=== PATIENT | male | born 1985 | race Caucasian/White ===

== ENCOUNTER 2018-03-06 06:21 | Emergency (ER) | payer SELFPAY ==
[2018-03-06 06:25] VITALS: BP 117/79; PULSE 75; RESP 16; TEMP 36.7; O2SAT 98
--- NOTE | 2018-03-06 06:44 | W.ED.GENAD ---
Discharge Plan Discharge Details Chief Complaint: RashLesion Clinical Impression: Impetigo, Poison yamilex Primary Care Provider: NONE,NONE ED Provider: Deonte Honeycutt Disposition Patient Disposition: HOME Condition: Good Home Meds and New Rx's Prescriptions: New clindamycin HCl 150 mg capsule 450 mg PO TID 7 Days Qty: 63 RF: 0 prednisone 50 mg tablet 50 mg PO DAILY Qty: 21 RF: 0 mupirocin calcium 2 % cream 1 applic TP TID Qty: 15 RF: 0 Discharge Instructions Instructions: Impetigo (ED), Poison Yamilex (ED) Additional Instructions: Please take the medication as directed. If you noticed that your symptoms improve after 1 week please stop taking prednisone steroid. If you notice any worsening of your symptoms, or any new symptoms such as vomiting, diarrhea, fever, chills, shortness of breath, chest pain, numbness, weakness, or fainting , please return immediately to the emergency department for reevaluation. Please follow up with your primary care provider as soon as possible for reassessment and reevaluation. As always, it was a pleasure participating in your medical care today. Medical Decision Making MDM Narrative Medical decision making narrative: This is a 32-year-old male with no significant past medical history who presents with a rash on his left medial ankle. Patient was exposed to poison yamilex about 2 weeks ago, has had a mild rash in that area ever since over the last couple of days he has noticed some redness and worsening of the rash and worsening of discharge patient weeping. Physical exam demonstrates a relatively benign appearing ankle however there does appear to be some mild redness over the medial aspect of the medial malleoli, there is noticeable honeydew colored/crusted weeping from this area. It is mildly pruritic. No evidence of circumferential erythema, and no signs or symptoms suggestive of systemic infection. The redness is very mild. Clinical impression does appear to demonstrate which I feel to be unresolved poison yamilex dermatitis, now with a mild superinfection seen objectively concerning for impetigo. We will give mupirocin cream, clindamycin for potential cellulitis, as well as steroids for unresolved poison yamilex dermatitis. We discussed red flags for which to return as well as the importance of close follow-up with PCP. We also recommended that he take yogurt with live cultures while taking the clindamycin. I have extensively reviewed the treatment plan and discharge instructions with the patient. I have addressed all patient concerns at this time. The patient was made aware of what symptoms to monitor for that would warrant a return to the emergency department. Discussed the plan with the patient, they demonstrate verbal understanding and agreement with our assessment and plan at this time. This is a 32-year-old male with no significant past medical history except for previous left ankle surgery over 10 years ago who presents today for rash on the medial aspect of his left ankle. The patient states his ankle was exposed to poison yamilex 2 weeks ago, which point he was moderately itchy, and had some weeping, however recently over the last 2-3 days it is gotten notably red, had severe increase in weeping, is worsening pain. Ankle pain is made worse with mild movement, however he is able to walk without a limp. The weeping is made worse with scratching. He denies any fever, chills, or systemic symptoms. He denies any numbness tingling or weakness. Patient has been leaving the area exposed in an attempt to try it, and has been using some topical natural sauves with no improvement. Patient does not have any other complaints at this time. He denies any IV or illicit drug use. He denies any pertinent family history. 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 Related Data Previous Rx's Medication Instructions Recorded clindamycin HCl 450 mg PO TID 7 Days #63 cap 03/06/18 mupirocin calcium 1 applic TP TID #15 gm 03/06/18 prednisone 50 mg PO DAILY #21 tab 03/06/18 Allergies Allergy/AdvReac Type Severity Reaction Status Date / Time No Known Allergies Allergy Unverified 03/06/18 06:25 General Stated Complaint: RashLesion DUGLAS: 3 Review of Systems Review of Systems 10 point review of systems was performed, pertinent positives and negatives are noted in the history of present illness. PFSH Social History Smoking/Tobacco Use Status: Never Exam Narrative Exam Narrative: 1.Const: Well-nourished, Well-developed, appearing stated age 2.Eyes: PERRL, no conjunctival injection, and symmetrical lids. 3.ENT: Atraumatic external nose and ears. Moist MM. Neck: Symmetric, trachea midline, No thyromegaly. 4.CVS: +S1/S2, No murmurs or gallops. Peripheral pulses 2+ and equal in all extremities. Brisk capillary refill in all extremities. 5.RESP: Unlabored respiratory effort. Clear to auscultation bilaterally. No wheezes rales or rhonchi 6.GI: Soft, Nontender/Nondistended, No hepatosplenomegaly. No guarding or rebound. 7.MSK: Normocephalic/Atraumatic, Extremities w/o deformity or ttp No cyanosis or clubbing, Normal movement of all extremities. Dorsalis pedis +2 bilaterally, capillary refill brisk. Normal sensation in the lower extremities 8.Skin: Warm, Dry. Mild redness on the medial aspect of the left ankle. Notable yellow crusting and honeydew colored weeping. No significant warmth. No significant pain with the ankle movement. No significant pain with palpation. No evidence of calf tenderness, redness over the foot or calf, or circumferential redness. 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 Sensation grossly intact, no focal neurologic deficits. 10.Psych: (AAO) x3. Appropriate mood and affect Course Vital Signs Temperature 36.7 C 03/06/18 06:25 Pulse 75 03/06/18 06:25 Respiratory Rate 16 03/06/18 06:25 Blood Pressure 117/79 03/06/18 06:25 Pulse Oximetry 98 03/06/18 06:25 Temperature 36.7 C 03/06/18 06:25 Pulse 75 03/06/18 06:25 Respiratory Rate 16 03/06/18 06:25 Blood Pressure 117/79 03/06/18 06:25 Pulse Oximetry 98 03/06/18 06:25
== END 2018-03-06 06:46 | disposition home or self-care (01) ==
LOC: ER 06:53
PROVIDERS: Emergency Provider Student in an Organized Health Care Education/Training Program
DX: L23.7 Allergic contact dermatitis due to plants, except food (principal); L01.00 Impetigo, unspecified
CPT/HCPCS: 99283

== ENCOUNTER 2019-01-30 15:40 | Emergency (ER) | payer MEDICAID, SELFPAY ==
[2019-01-30 15:45] VITALS: BP 126/84; PULSE 64; RESP 16; TEMP 36.8; O2SAT 99
[2019-01-30] MEDS: Lidocaine/Epinephri/Tetracaine Topical Gel 3 ML (16:11)
--- NOTE | 2019-01-30 16:25 | W.ED.GENAD ---
Discharge Plan Disposition Patient Disposition: HOME Discharge Details Chief Complaint: Laceration Clinical Impression: Laceration of left index finger Primary Care Provider: Cesar Ruiz ED Provider: Jason Machado Home Meds and New Rx's Prescriptions: No Action No Known Home Meds RF: 0 Discharge Instructions Instructions: Finger Laceration (ED) Additional Instructions: Sutures should be removed in 8 to 12 days. Please return for suture removal or follow-up with your primary care physician. Keep wound clean and dry. Change dressing daily and apply topical antibiotic Neosporin at time of dressing change. Monitor for signs of infection including increased warmth, swelling, discharge, redness, or pain. Return to the ER for any worsening or new concerning symptoms. Referrals: Cesar Ruiz DO [Primary Care Provider] - Medical Decision Making 33-year-old male here with laceration to left second digit dorsally. Neurologically intact distally. Deep structures intact with full range of motion and no weakness on extension. Wound irrigated extensively with copious sterile saline. Wound repaired, primary closure performed with number two 5-0 Prolene. No complications. Sterile dressing applied and finger splint provided. Usual and customary discharge instructions were provided and reviewed with the patient. HPI General Mode of arrival: ambulatory. Date/Time Provider Initiated Documentation: 01/30/19 15:47. Limitations to Documentation: no limitations. Information obtained by: patient. HPI Narrative: 33-year-old male presents with chief complaint of finger laceration. Patient notes he accidentally cut his left index finger on a saw just prior to arrival. Wound was initially bleeding heavily. He irrigated it extensively with cold water. Bleeding stopped. No modifiers. No associated numbness or tingling. No weakness. Related Data Home Medications Medication Instructions Recorded Confirmed Unknown [No Known Home Meds] 01/30/19 01/30/19 Allergies Allergy/AdvReac Type Severity Reaction Status Date / Time No Known Allergies Allergy Unverified 01/30/19 15:53 General Stated Complaint: Laceration DUGLAS: 4 Review of Systems Integumentary/Breasts Reports as per HPI Neurologic Reports as per HPI [facility] Social History Smoking/Tobacco Use Status: Never Alcohol Intake: current Alcohol Intake frequency: holidays/special occasions only Drug use: Never Do you feel safe at home: Yes Do you feel safe in your relationship?: Yes Exam Skin Trauma: laceration (1cm rt index dorsal no bleeding) Extrem Left upper extremity: hand Details: normal capillary refill, neuromotor exam normal, neurosensory exam normal, tendon exam normal, normal ROM of fingers and laceration (as noted above) Course Vital Signs Temperature 36.8 C 01/30/19 15:45 Pulse 64 01/30/19 15:45 Respiratory Rate 16 01/30/19 15:45 Blood Pressure 126/84 01/30/19 15:45 Pulse Oximetry 99 01/30/19 15:45 Temperature 36.8 C 01/30/19 15:45 Temperature Source Skin 01/30/19 15:45 Pulse 64 01/30/19 15:45 Respiratory Rate 16 01/30/19 15:45 Respiratory Effort Non-Labored 01/30/19 15:52 Blood Pressure 126/84 01/30/19 15:45 Blood Pressure Position Sitting 01/30/19 15:45 Pulse Oximetry 99 01/30/19 15:45 Oxygen Delivery Method Room Air 01/30/19 15:45 Oxygen Flow Rate 0 01/30/19 15:45 Pain Level 2 01/30/19 15:45 Procedures Laceration Laceration 1: Site: hand Side (If applicable): left Description: flap and clean Depth: simple, single layer Local Anesthetic: other anesthetic (LET) Pre-repair: wound explored, irrigated extensively and deep structures intact Skin layer closed with: other (prolene) Size (cm): 5-0 Number of sutures: 2 Technique: simple, interrupted
[2019-01-30 17:11] VITALS: BP 126/84; PULSE 64; RESP 16; TEMP 36.8; O2SAT 99
== END 2019-01-30 17:11 | disposition home or self-care (01) ==
PROVIDERS: Emergency Provider Student in an Organized Health Care Education/Training Program; PCP Family Medicine
DX: S61.211A Laceration without foreign body of left index finger without damage to nail, initial encounter (principal); W27.0XXA Contact with workbench tool, initial encounter
CPT/HCPCS: 12001; 90471

== ENCOUNTER 2019-11-19 23:16 | Emergency (ER) | payer MEDICAID, SELFPAY ==
--- NOTE | 2019-11-19 23:19 | ED.GENADUL_ITS ---
Discharge Plan Disposition Patient Disposition: HOME Condition: Good Discharge Details Chief Complaint: RashLesion Clinical Impression: Shingles Primary Care Provider: Unknown,Unknown ED Provider: Guilherme Muro and New Rx's Prescriptions: New valacyclovir 1 gram tablet 1,000 mg PO TID Qty: 20 RF: 0 ibuprofen 600 mg tablet 600 mg PO Q8H PRN (Reason: pain) Qty: 15 RF: 0 Discharge Instructions Instructions: Shingles (ED) Additional Instructions: Take valacyclovir for 7 days for treatment of shingles. Use ibuprofen and acetaminophen as needed for pain and discomfort. Keep rash covered until completely dried up. Follow-up with primary care in 1 to 2 weeks if not better. Return to ED for high fever, mental status changes, difficulty breathing, continued worsening of rash, other concerns. Referrals: Primary Care Provider [Outside] Medical Decision Making Patient has herpes-zoster. He still has ongoing new vesicles occurring. Therefore, despite symptoms starting over 72 hours ago due to the fact that he continues to have new vesicles we will start treatment with valacyclovir. Will use ibuprofen and Tylenol for pain as he does not seem to be entirely uncomfortable. Discussed keeping rash covered and avoiding contact with people who have not had chickenpox, and vaccinated against chickenpox or are . Follow-up with primary care in 1 to 2 weeks if not doing better. Return to ED for fever, difficulty breathing, continued worsening rash, other problems. HPI General Mode of arrival: ambulatory . Date/Time Provider Initiated Documentation: 11/19/19 23:17 . Limitations to Documentation: no limitations . Information obtained by: patient and RN notes reviewed . HPI Narrative: Patient presents to ED with a rash involving the right side of his neck shoulder and arm with pain in the shoulder and neck. Rash started 5 days ago now on the back of his neck. He continues to progress now down the right arm along the bicep. It involves the chest shoulder trapezial area. Some areas have dried over. Some continue to erupt down his arm. He has pain in the shoulder and neck with movement. He denies feeling ill otherwise. He did have chickenpox as a child. Related Data Home Medications Medication Instructions Recorded Confirmed ibuprofen 600 mg PO Q8H PRN #15 tab 11/19/19 valacyclovir 1,000 mg PO TID #20 tab 11/19/19 Previous Rx's Medication Instructions Recorded ibuprofen 600 mg PO Q8H PRN #15 tab 11/19/19 valacyclovir 1,000 mg PO TID #20 tab 11/19/19 Allergies Allergy/AdvReac Type Severity Reaction Status Date / Time No Known Allergies Allergy Unverified 01/30/19 15:53 General DUGLAS: 4 Review of Systems Narrative: As documented in HPI otherwise negative as below. Const: no fever, chills, weakness Resp: no cough, SOB, pleuritic pain CV: no CP, diaphoresis, edema, syncope GI: no abdominal pain, nausea, vomiting, diarrhea Neuro: no headache, numbness, focal weakness, confusion PFSH Medical History No active medical problems (Acute) Surgical History History of surgical procedure (Acute) orthopedic procedures Social History Smoking/Tobacco Use Status: Never Alcohol Intake: current Alcohol Intake frequency: holidays/special occasions only Drug use: Never Do you feel safe at home: Yes Do you feel safe in your relationship?: Yes Exam Narrative Exam Narrative: Vitals: Afebrile with normal vitals and normal room air pulse ox. Const: WDWN male in NAD. HEENT: NC/AT. Normal facial exam. Eyes: Normal conjunctiva and sclera. Neck: Supple. Trachea midline. Lungs: Normal respiratory effort. Neuro: A+O x 3. Normal speech, mentation, gait. Cranial nerves II - XII grossly intact. No gross motor or sensory deficit. Ext: No C/C/E. Normal range of motion of right upper extremity. Skin: Warm and dry with vesicular rash involving only the right side, not crossing midline. Involves neck, trapezial back, shoulder, chest and proximal upper extremity rash.
[2019-11-19 23:21] VITALS: BP 139/78; PULSE 65; RESP 16; TEMP 36.6; O2SAT 100
[2019-11-19] MEDS: Ibuprofen 600 MG TAB PO (23:40)
[2019-11-19] MEDS: valACYclovir 1,000 MG TAB 1000 MG PO (23:41)
== END 2019-11-19 23:50 | disposition home or self-care (01) ==
LOC: ER 23:54
PROVIDERS: Emergency Provider Emergency Medicine
DX: B02.9 Zoster without complications (principal)
CPT/HCPCS: 99283

== ENCOUNTER 2019-11-20 10:30 | Emergency (ER) | payer MEDICAID, SELFPAY ==
[2019-11-20 10:37] VITALS: BP 136/89; PULSE 70; RESP 14; TEMP 36.8; O2SAT 100
--- NOTE | 2019-11-20 11:04 | W.ED.GENAD ---
Discharge Plan Disposition Patient Disposition: HOME Condition: Stable Discharge Details Chief Complaint: RashLesion Clinical Impression: Shingles Primary Care Provider: None,None ED Provider: Deepthi Florez Home Meds and New Rx's Prescriptions: New oxycodone 5 mg capsule 2.5 mg PO Q6H PRNQty: 8 RF: 0 ondansetron HCl [Zofran] 4 mg tablet 4 mg PO Q8H PRNQty: 16 RF: 0 Continued valacyclovir 1 gram tablet 1,000 mg PO TID Qty: 20 RF: 0 ibuprofen 600 mg tablet 600 mg PO Q8H PRN (Reason: pain) Qty: 15 RF: 0 Discharge Instructions Instructions: Shingles (ED) Additional Instructions: Use medication as prescribed. Use pain medication as prescribed. Do not drive any vehicles, mix with alcohol or any other sedating medications. This will cause drowsiness. This can cause constipation. Use with caution. Use nausea medication prior to taking your pain medication dose. May use ibuprofen or Tylenol for nondrowsy pain management. Continue antiviral medication previously prescribed. Follow-up local PCP as discussed. HIV testing pending. Rest activities as tolerated. Discharge Data Discharge Date/Time-TO BE ENTERED AT DEPARTURE: 11/20/19 12:11 Medical Decision Making Nontoxic-appearing 33-year-old patient presenting for rash. Patient was seen earlier today for vesicular rash to the right shoulder. Patient was provided Valtrex. Patient took initial dose of Valtrex yesterday but then did not have any additional medication today as he was unable to fill his medications at the pharmacy. Patient does report new lesions noted on the right arm. Patient reports significant pain in the right neck. Patient declined pain medication during his evaluation yesterday however he is reporting increasing pain today. 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 Patient seeking reevaluation just for second opinion due to increasing pain and for consideration of medication for pain relief. On exam patient does have a vesicular appearing dermatomal distribution of rash which is described and preceded by vague pain prior to onset of rash. Rash is been present for at least 1 week. Patient is nontoxic-appearing. Patient has no increase in respiratory effort. Involvement mostly in the C5 distribution. He does have 3 small satellite singular lesions noted on the abdomen. Patient has no head involvement specifically no lesions in the right ear. Likely patient is experiencing muscle spasm in the right neck and possibly tension headache associated. Will continue Valtrex. Will provide a small amount of pain medication for symptomatic relief discussed at length with the patient. Will add HIV testing as patient's distribution and rash are quite impressive given the 3 satellite lesions just to be sure there is no risk of immunocompromise although there is no obvious dissemination of this rash. Patient agrees this plan of care. The patient was stable and requested discharge. Prior to discharge, my usual and customary return precautions were reviewed with the patient - this included follow-up instructions and reasons to return to the Emergency Department if conditions worsens, does not improve as expected, or other new concerns arise. HPI General Date/Time Provider Initiated Documentation: 11/20/19 11:03. HPI Narrative: This is a 33-year-old patient presents to the emergency room for complaints of a painful rash. Patient was seen in the emergency room last night and diagnosed with shingles. Patient reports his pain began approximately 1-1/2 weeks ago rash began approximately 7 days ago noted predominantly to the right chest, right neck and right arm. Patient reports since being evaluated last night he has developed new vesicles on the right arm. Patient is concerned regarding his right neck reporting that he feels he is experiencing likely muscle spasm. 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 Patient does have a history of neck spasm and feels this is somewhat similar on top of the pain is been previously experiencing shingles. Patient denies any fevers, chills. Patient denies headache or dizziness. Patient does report mild pain developing from the right side of his neck toward the top of his head but no associated rash in this area. Question tension headache developing. Denies vision change or ear pain. Patient denies any Related Data Home Medications Medication Instructions Recorded Confirmed ibuprofen 600 mg PO Q8H PRN #15 tab 11/19/19 11/20/19 valacyclovir 1,000 mg PO TID #20 tab 11/19/19 11/20/19 ondansetron HCl [Zofran] 4 mg PO Q8H PRN #16 tab 11/20/19 oxycodone 2.5 mg PO Q6H PRN #8 cap 11/20/19 Previous Rx's Medication Instructions Recorded ibuprofen 600 mg PO Q8H PRN #15 tab 11/19/19 valacyclovir 1,000 mg PO TID #20 tab 11/19/19 ondansetron HCl [Zofran] 4 mg PO Q8H PRN #16 tab 11/20/19 oxycodone 2.5 mg PO Q6H PRN #8 cap 11/20/19 Allergies Allergy/AdvReac Type Severity Reaction Status Date / Time No Known Allergies Allergy Unverified 11/20/19 10:39 General Stated Complaint: RashLesion DUGLAS: 3 PFSH Social History Smoking/Tobacco Use Status: Never Alcohol Intake: current Alcohol Intake frequency: holidays/special occasions only Drug use: Never Substance use type: does not use Do you feel safe at home: Yes Do you feel safe in your relationship?: Yes Exam Narrative Exam Narrative: CONST: Healthy appearing patient, in no acute distress. Well hydrated. Alert and oriented. HENMT: Head nomocephalic, normal to inspection. Atraumatic. Hearing grossly normal. EYES: General normal appearance. Alignment normal. Eyelids normal. Conjunctiva normal. NECK: Normal visual inspection. FROM. Trachea midline. No Midline tenderness. CHEST: Normal insepection of the chest. RESP: Normal respiratory effort. Speaking full sentences. No cough. No audible wheezing. No retractions. CARDIO: No JVD. MUSCULOSKELETAL: Normal Gait. FROM of all extremities. SKIN: Normal. Dry. No rashes. Patient has a C5 distribution of shingles on the right side. Right anterior chest, right arm anteriorly and extending into the forearm. No involvement of the wrist or hand. Patient does have lesions noted on the posterior shoulder and posterior and lateral neck. No extension to the proximal neck or head. No rash involving the face, periumbilical area. Rash does not appear to have any sign of secondary infection. Vesicular rash consistent with shingles. Patient does have 3 vesicles noted on the abdomen and trunk. There is a left-sided abdominal vesicle, vesicle noted on the left flank and an additional vesicle noted on his lower back. This appears to be satellite lesions with no obvious dermatomal distribution.NEURO: Alert and awake. Speech clear. PSYCH: Normal affect. Cooperative. Course Vital Signs Vital signs: Vital Signs Temperature 36.8 C 11/20/19 10:37 Pulse 70 11/20/19 10:37 Respiratory Rate 14 11/20/19 10:37 Blood Pressure 136/89 11/20/19 10:37 Pulse Oximetry 100 11/20/19 10:37 Temperature 36.8 C 11/20/19 10:37 Temperature Source Tympanic 11/20/19 10:37 Pulse 70 11/20/19 10:37 Respiratory Rate 14 11/20/19 10:37 Respiratory Effort Non-Labored 11/20/19 10:39 Blood Pressure 136/89 11/20/19 10:37 Blood Pressure Position Sitting 11/20/19 10:37 Pulse Oximetry 100 11/20/19 10:37 Oxygen Delivery Method Room Air 11/20/19 10:37 Oxygen Flow Rate 0 11/20/19 10:37 Pain Level 9 11/20/19 10:37
--- NOTE | 2019-11-20 11:30 | PDOC.ERCMPRO ---
- If Service Date Differs Date of service: 11/20/19 Time of Service: 11:30 Care Management Progress Note At the request of ED provider, CM briefly meets with patient to provide him with his Medicaid ID number. GERALD also coordinates referral to [facility], ([facility]) to assist patient in establishing care with a PCP.
[2019-11-20] MEDS: valACYclovir 1,000 MG TAB 1000 MG PO (12:08)
--- NOTE | 2019-11-20 19:25 | W.ED.FU ---
Date of service: 11/20/19 Time of Service: 19:25 Follow Up Plan: The patient's significant other contacted the emergency department secondary to slight altered mental status of the patient. The patient did receive a dose of valacyclovir here in the ED at noon, then when he got home at 3 he took a repeat dose, and then at 7 PM he took a third dose. The patient significant other has noted that he has been slightly confused since he woke up from a nap, he has been bringing up things from childhood, peed himself while sleeping in the hammock, and has been acting fine. Is otherwise been stable and is finally having some improvement of his pain. Patient is certainly taking extra/additional doses of the valacyclovir that was directed as this prescription has been written for every 8 hours. This was discussed with the patient significant other. Common side effects and adverse reactions from valacyclovir include psychosis, encephalopathy, and delirium, it does sound like this is what the patient is currently suffering from. I did discuss with the patient significant other that we would be happy to see the patient here to reassess him. At this point the patient significant other would like to give the patient at home and let him rest for the time being. I had a long discussion with the patient significant other regarding red flags for which to immediately return, as well as our availability at any time for contact our discussion. The patient significant other demonstrates verbal understanding.
[2019-11-21 10:43] LABS: HIV-1/2 Ag & Ab Screen Negative (Negative)
== END 2019-11-20 12:11 | disposition home or self-care (01) ==
PROVIDERS: Emergency Provider Physician Assistant; PCP Family Medicine
DX: M54.2 Cervicalgia (principal); B07.9 Viral wart, unspecified; R41.82 Altered mental status, unspecified; T37.5X5A Adverse effect of antiviral drugs, initial encounter
CPT/HCPCS: 36415; 87389; 99283; L0120

== ENCOUNTER 2020-07-30 12:15 | Emergency (ER) | payer OTHER, SELFPAY ==
[2020-07-30 12:21] VITALS: BP 122/65; PULSE 73; RESP 16; TEMP 36.8; O2SAT 99
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
[2020-07-30] MEDS: Omnipaque 350 MG/ML 100 ML BTL IJ (13:54)
== END 2020-07-30 15:09 | disposition home or self-care (01) ==
PROVIDERS: Emergency Provider Physician Assistant; PCP Family Medicine
DX: S20.211A Contusion of right front wall of thorax, initial encounter (principal); V00.321A Fall from snow-skis, initial encounter; Y93.23 Activity, snow (alpine) (downhill) skiing, snowboarding, sledding, tobogganing and snow tubing
CPT/HCPCS: 36415; 99285; 71260; 99284; J3490

== ENCOUNTER 2021-08-21 16:40 | Emergency (ER) | payer OTHER, SELFPAY ==
[2021-08-21 16:47] VITALS: BP 118/79; PULSE 69; RESP 16; TEMP 36.8; O2SAT 100
--- NOTE | 2021-08-21 17:00 | DI.RAD_ITS ---
Exam(s) XR ELBOW RT COMPLETE EXAM: XR ELBOW RT COMPLETE CLINICAL HISTORY: trauma olecranon process pain. TECHNIQUE: 2D digital imaging was performed. COMPARISON: No exams were available for comparison FINDINGS: There is no evidence of fracture or joint effusion at the level the elbow. Also no swelling of the o lecranon bursa. No radiopaque foreign body. Partially included are fixation plates in the radius and ulna not completely included in the field of view here. IMPRESSION: No elbow fracture nor joint effusion. DATA REPOSITORY: RADIATION DOSE DELIVERED:
--- NOTE | 2021-08-21 17:00 | DI.RAD_ITS ---
Exam(s) XR TIB/FIB RT EXAM: XR TIB/FIB RT CLINICAL HISTORY: trauma lateral pain. TECHNIQUE: 2D digital imaging was performed. COMPARISON: No exams were available for comparison FINDINGS: There is some soft tissue swelling posteriorly in the mid-upper calf. No radiopaque foreign body. N o fractures. No significant osseous lesions. IMPRESSION: No fracture evident. DATA REPOSITORY: RADIATION DOSE DELIVERED:
--- NOTE | 2021-08-21 17:00 | DI.RAD_ITS ---
Exam(s) XR FOREARM RT EXAM: XR FOREARM RT CLINICAL HISTORY: trauma ulnar pain. TECHNIQUE: 2D digital imaging was performed. COMPARISON: No exams were available for comparison FINDINGS: There are adjacent fixation plates at the midshaft of the radius and ulna. Fracture sites at these 2 levels are healed with no visible fracture lines. No hardware loosening. No radiographic evidence of osteomyelitis. No acute fractures evident in the radius and ulna. A benign-appearing lung to toñito ly orientated sclerotic bone lesion is seen in the distal 3rd of the radius. IMPRESSION: Intact hardware. No fractures evident. No hardware loosening DATA REPOSITORY: RADIATION DOSE DELIVERED:
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
== END 2021-08-21 18:25 | disposition home or self-care (01) ==
PROVIDERS: Emergency Provider Nurse Practitioner Family; PCP Family Medicine
DX: S50.11XA Contusion of right forearm, initial encounter (principal); S80.11XA Contusion of right lower leg, initial encounter; W03.XXXA Other fall on same level due to collision with another person, initial encounter; Y99.0 Civilian activity done for income or pay
CPT/HCPCS: 99284; 73080; 73090; 73590; 99283